=== PATIENT | female | born 1960 | race Caucasian/White ===

== ENCOUNTER → 2022-11-11 09:01 | Outpatient (BNVA) | payer OTHER, SELFPAY | PROVIDERS: Family Provider Family Medicine; PCP Family Medicine; Visit Provider Family Medicine | DX: K29.70 Gastritis, unspecified, without bleeding (principal); Z00.00 Encounter for general adult medical examination without abnormal findings | CPT/HCPCS: 80053; 80061; 83036; 84443; 85025 ==

== ENCOUNTER → 2023-04-12 13:26 | Outpatient (BNVA) | payer OTHER, SELFPAY | PROVIDERS: Family Provider Family Medicine; PCP Family Medicine; Visit Provider Family Medicine | DX: N20.0 Calculus of kidney (principal); N39.0 Urinary tract infection, site not specified | CPT/HCPCS: 74018; 81003 ==

== ENCOUNTER 2025-03-11 12:00 | Emergency (ER) | payer OTHER, SELFPAY ==
[2025-03-11] VITALS (9 sets, daily range): BP systolic 147–203; BP diastolic 81–112; PULSE 69–80; RESP 24; TEMP 36.7; O2SAT 96–100; BMI 26.6
--- NOTE | 2025-03-11 12:48 | CT_ITS ---
WS: [id number] CT ABDOMEN AND PELVIS NONCONTRAST HISTORY: probable R ureter stone; hematuria TECHNIQUE: Imaging performed through the abdomen and pelvis. Coronal and sagittal reformats are submitted. All CT scans at [facility] use at least one of these dose optimization techniques: automated exposure control; mA and/or kV adjustment per patient size (includes targeted exams where dose is matched to clinical indication); or iterative reconstruction. DLP: 566.42 mGy.cm COMPARISON: 04/03/2007 Lower thorax: Small hiatal hernia. Otherwise negative. Liver: Normal size liver. Low-attenuation 9 mm nodule in the RIGHT lobe of the liver. May be a small cyst but cannot be further characterized. There are a few additional smaller scattered similar low-attenuation masses within the liver. Gallbladder: Mild heterogeneity within the gallbladder lumen is layering may be a small amount of sludge. No pericholecystic fluid. Pancreas: Normal size and attenuation. Normal pancreatic duct. No pancreatitis or mass. Spleen: Normal. Adrenal glands: Normal. No mass. Right kidney: Mild to moderate dilatation of the RIGHT renal pelvis. No significant perinephric stranding. There is also a small extrarenal pelvis. Proximal ureter is dilated secondary to a 3.5 mm proximal calcification. No additional ureteral calcification. Left kidney: Normal size kidney. Moderate hydronephrosis. Dilated extrarenal pelvis. Dilatation to the mid ureter. In the mid ureter there are 3 ureteral calcifications causing the more proximal obstruction. The largest calcification is most distal measuring 7.4 mm. Distal to the ureter there is no calcification. Aorta: Mild atherosclerosis abdominal aorta with no aneurysm. Small shotty retroperitoneal lymph nodes. GI tract: No obstruction. Normal appendix. No diverticulitis. Abdominal wall: Small umbilical hernia contains fat only. Pelvis: Prior hysterectomy. No free fluid or adenopathy. Negative urinary bladder. Osseous structures: Unremarkable. CT/CT kidney stone [id number] IMPRESSION: 1. Bilateral hydronephrosis, moderate on the LEFT and mild to moderate on the RIGHT. 2. Proximal RIGHT ureteral calcification measures 3.5 mm. 3. Mid LEFT ureteral calcifications x3. There are 3 calcifications in a row wi th the largest being the most distal calcification measuring 7.4 mm. 4. No urinary bladder calcifications. 5. Normal appendix. 6. No free fluid. Small retroperitoneal lymph nodes.
--- NOTE | 2025-03-11 12:49 | ED_ITS ---
Documented by User: OLLIE Perez 03/11/25 14:48 HPI - Abdominal Pain 2 General: Chief Complaint: Abdominal Pain Stated Complaint: R side pain, lightheaded, nausea, L&R hand tingle Time Seen by Provider: 03/11/25 12:09 Source: patient Mode of arrival: ambulatory Limitations: no limitations History of Present Illness: Patient is a nice 64-year-old female presents to ED today with concerns of a probable right ureter stone. She states earlier today she had acute onset right lower back pain that has now radiated around into her right lower abdomen and into her right groin. She states since arrival to the emergency department she has noted gross hematuria. She states she has a longstanding history of kidney and ureter stones and states this feels similar. She states she feels nauseous secondary to pain. She states her blood pressure is usually normal but is elevated today secondary to pain. MD elicited complaint: abdominal pain Pertinent past history: kidney stones Onset (ago): hour(s) Pain Consistency: constant Location: RLQ Severity: severe Migration to: no migration Exacerbating factors: nothing Relieving factors: nothing Associated Symptoms: Reports hematuria, nausea and other (hematuria); Denies chills, constipation, diarrhea, dysuria, fever(s) and vomiting Related Data Previous Rx's ?Medication ?Instructions ?Recorded escitalopram oxalate 10 mg tablet 10 mg PO DAILY mood #90 tabs 01/28/25 hydrocodone 5 mg-acetaminophen 325 1 tab PO Q4H PRN pa in 5 days #20 01/28/25 mg tablet tabs sulfamethoxazole 800 1 tab PO BID infection #20 t abs 01/28/25 mg-trimethoprim 160 mg tablet (Bactrim DS) tamsulosin 0.4 mg capsule 0.4 mg PO DAILY kidnsy stone #20 01/28/25 caps Allergies Allergy/AdvReac Type Severity Reaction Status Date / Time No Known Allergies Allergy Verified 03/11/25 12:08 Review of Systems 2 Const: Denies: fever(s), chills, body aches, fatigue or malaise Card: Denies: chest pain Resp: Denies: dyspnea GI: Reports: abdominal pain, nausea and other (hematuria); Denies: vomiting, diarrhea or constipation : Reports: urinary urgency and hematuria; Denies: flank pain, difficulty voiding or dysuria Musc: Denies: neck pain, back pain, extremity pain, extremity swelling, joint pain, joint swelling or joint redness Skin/Breast: Denies: rash Neuro: Denies: headache(s), numbness in extremities, weakness in extremities, sensory changes or dizziness PFSH ED 2 PFSH: Social History Smoking and tobacco/nicotine status: unknown if used tobacco/nicotine Physical Exam 2 Const: COMMON NORMALS: no acute distress, average body habitus, patient oriented x3, no limitations, healthy appearing, alert and well nourished G ENERAL APPEARANCE: cooperative ORIENTATION/CONSCIOUSNESS: Yes awake, Yes oriented to person, Yes oriented to place and Yes oriented to time HENMT: COMMON NORMALS: normocephalic and atraumatic HEAD & SCALP: normal to inspection, normocephalic and atraumatic Eye: COMMON NORMALS: no scleral icterus Resp: COMMON NORMALS: normal respiratory effort and clear to auscultation bilaterally AUSCULTATION: clear to auscultation bilaterally Cardio: COMMON NORMALS: regular rate and regular rhythm RATE: regular rate RHYTHM: regular rhythm GI: COMMON NORMALS: Normal to inspection, nondistended, normoactive bowel sounds present, Soft to palpation, No hepatosplenomegaly present and no masses INSPECTION: Yes normal to inspection AUSCULTATION: Yes normoactive bowel sounds PALPATION: Yes Soft to palpation, Yes Tenderness to palpation present (GI) (RLQ/R groin), No Guarding due to palpation present (GI), No Rigid due to palpation and Yes No hepatosplenomegaly present : COMMON NORMALS: Yes no CVA tenderness BLADDER/KIDNEY EXAM: Yes no CVA tenderness Back/Pelvis: COMMON NORMALS: no CVA tenderness and thoracic and lumbar spine normal to inspection Extremity: GENERAL: Yes normal exam except as noted Neuro: COMMON NORMALS: patient oriented x3, moves all extremities, no focal motor deficits, no sensory deficits noted and gait normal S ENSORIUM/ORIENTATION: Yes alert, Yes oriented to person, Yes oriented to place and Yes oriented to time Skin: COMMON NORMALS: no rashes or lesions noted GENERAL SKIN EXAM: no rashes or lesions noted Course 2 Consultations: Consultation #1: Dr. Bruno urology-recommending transfer due to bilateral ureter stone in the presence of infection Consultation #2: Jyoti [facility] hospitalist-accepting patient Vital Signs: Vital signs: Vital Signs Temperature 98.0 F 03/11/25 12:03 Pulse Rate 74 03/11/25 17:54 Respiratory Rate 24 H 03/11/25 12:03 Blood Pressure 153/97 03/11/25 17:54 Pulse Oximetry 100 03/11/25 17:54 Oxygen Delivery Me thod Room Air 03/11/25 17:37 MDM - Abdominal Pain Medical Decision Making Patient is a nice 64-year-old female here for acute onset back pain radiating around into her abdomen. History of kidney and ureter stones. CT scan showing bilateral hydronephrosis. She does have a 3.5 mm distal right ureter stone explaining her symptoms. She was incidentally found to have 3 left ureter stones the largest of which being 7.4 mm. Her blood work overall is unremarkable. Concern as she seems to have gross infection in her urine with positive nitrates, 2+ leukocyte esterase, and greater than [address] Jo with [facility] urology who is recommending transfer. Per his recommendations, she will be NPO, and he is okay with IV Rocephin for antibiotic selection. Medical Records I reviewed the patient's medical records. Lab Data I reviewed the patient's lab results. 03/11/25 12:30 03/11/25 12:30 Labs/Radiology: Radiology Impressions Abdomen/Pelvis CT 03/11/25 12:48 IMPRESSION: 1. Bilateral hydronephrosis, moderate on the LEFT and mild to moderate on the RIGHT. 2. Proximal RIGHT ureteral calcification measures 3.5 mm. 3. Mid LEFT ureteral calcifications x3. There are 3 calcifications in a row with the largest being the most distal calcification measuring 7.4 mm. 4. No urinary bladder calcifications. 5. Normal appendix. 6. No free fluid. Small retroperitoneal lymph nodes. Laboratory Results WBC 8.78 10^3/uL (3.29-11.43) 03/11/25 12:30 RBC 4.73 10^6/uL (3.85-5.65) 03/11/25 12:30 Hgb 14.80 g/dL (11.27-16.99) 03/11/25 12:30 Hct 42.4 % (36-47) 03/11/25 12:30 MCV 89.6 fl (85-98) 03/11/25 12:30 MCH 31.3 pg (27-33) 03/11/25 12:30 MCHC 34.9 g/dL (30-55) 03/11/25 12:30 RDW 12.1 % (12.1-15.1) 03/11/25 12:30 Plt Count 342 10^3/cmm (157-399) 03/11/25 12:30 MPV 10.2 fL (7.4-10.4) 03/11/25 12:30 Neut % (Auto) 53.6 % 03/11/25 12:30 Lymph % (Auto) 39.6 % 03/11/25 12:30 [place] % (Auto) 4.7 % 03/11/25 12:30 Eos % (Auto) 1.3 % 03/11/25 12:30 Baso % (Auto) 0.6 % 03/11/25 12:30 Neut # (Auto) 4.71 10^3/uL (1.8-7.7) 03/11/25 12:30 Lymph # (Auto) 3.5 10^3/uL (0.8-4.8) 03/11/25 12:30 [place] # (Auto) 0.4 10^3/uL (0.2-0.9) 03/11/25 12:30 Eos # (Auto) 0.1 10^3/uL (0.0-0.8) 03/11/25 12:30 Baso # (Auto) 0.1 10^3/uL (0.0-0.1) 03/11/25 12:30 Nucleated RBC % (auto) 0 % 03/11/25 12:30 Nucleated RBCs # 0.0 /100WBC 03/11/25 12:30 Sodium 142 mmol/L (136-145) 03/11/25 12:30 Potassium 3.8 mmol/L (3.5-5.1) 03/11/25 12:30 Chloride 107 mmol/L (98-107) 03/11/25 12:30 Carbon Dioxide 20 mmol/L (22-29) L 03/11/25 12:30 Anion Gap 18.8 (5-19) 03/11/25 12:30 BUN 19 mg/dL (8-23) 03/11/25 12:30 Creatinine 0.8 mg/dL (0.5-0.9) 03/11/25 12:30 GFR Calculation 72.2 mL/min (90-130) L 03/11/25 12:30 Glucose 98 mg/dL (65-115) 03/11/25 12:30 Calculated Osmolality 296 mOsm/kg (285-295) H 03/11/25 12:30 Calcium 10.3 mg/dL (8.5-10.5) 03/11/25 12:30 Total Bilirubin 0.8 mg/dL (0.15-1.2) 03/11/25 12: AST 15 U/L (0-32) 03/11/25 12: ALT 14 U/L (0-33) 03/11/25 12: Alkaline Phosphatase 76 U/L (35-105) 03/11/25 12:30 Total Protein 7.4 g/dL (6.6-8.7) 03/11/25 12: Albumin 4.8 g/dL (3.5-5.2) 03/11/25 12: Globulin 2.6 g/dL (1.3-4.6) 03/11/25 12:30 Urine Color Red (Yellow) A 03/11/25 12: Urine Appearance Turbid (CLEAR) A 03/11/25 12: Urine pH 5.0 (5-7) 03/11/25 12:30 Ur Specific [place] 1.024 (1.005-1.030) 03/11/25 12:30 Urine Protein 3+ (Negative) A 03/11/25 12: Urine Glucose (UA) Negative (Normal) 03/11/25 12: Urine Ketones Negative (Negative) 03/11/25 12: Urine Blood 3+ (Negative) A 03/11/25 12: Urine Nitrate Positive (Negative) A 03/11/25 12: Urine Bilirubin 1+ (Negative) H 03/11/25 12:30 Urine Urobilinogen 1.0 mg/dL (Negative) 03/11/25 12:30 Ur Leukocyte Esterase 2+ (Negative) A 03/11/25 12: Urine RBC >100 /hpf (0-2) H 03/11/25 12:30 Urine WBC >100 /hpf (0-5) H 03/11/25 12:30 Ur Squamous Epith Cells 6-10 /hpf (0-5) 03/11/25 12:30 Amorphous Sediment 1+ /hpf 03/11/25 12:30 Urine Bacteria None seen /hpf (NONE) 03/11/25 12:30 Hyaline Casts 2.03 /lpf 03/11/25 12:30 All radiology interpretation(s) finalized by discharge Discharge Plan Discharge Patient Disposition: Xfer Short-Term Hosp Clinical Impression: Bilateral ureteral calculi UTI (urinary tract infection) Qualifiers: Urinary tract infection type: acute cystitis Hematuria presence: with hematuria Qualified Code(s): N30.01 - Acute cystitis with hematuria Condition: Stable Referrals: Hunter Henriquez DO [Primary Care Provider, [facility]] Print Language: Kiswahili Coding Level of Care Code ED Compliance Nurse for Chg Fwd Documented by User: Kennedy Kennedy DO 03/11/25 18:52 HPI - Abdominal Pain 2 General: Chief Complaint: Abdominal Pain Stated Complaint: R side pain, lightheaded, nausea, L&R hand tingle Time Seen by Provider: 03/11/25 12:09 Related Data Previous Rx's ?Medication ?Instructions ?Recorded escitalopram oxalate 10 mg tablet 10 mg PO DAILY mood #90 tabs 01/28/25 hydrocodone 5 mg-acetaminophen 325 1 tab PO Q4H PRN pa in 5 days #20 01/28/25 mg tablet tabs sulfamethoxazole 800 1 tab PO BID infection #20 t abs 01/28/25 mg-trimethoprim 160 mg tablet (Bactrim DS) tamsulosin 0.4 mg capsule 0.4 mg PO DAILY kidnsy stone #20 01/28/25 caps Allergies Allergy/AdvReac Type Severity Reaction Status Date / Time No Known Allergies Allergy Verified 03/11/25 12:08 PFSH ED 2 PFSH: Social History (Reviewed 03/11/25 @ 13:11 by REJI Perez Smoking and tobacco/nicotine status: unknown if used tobacco/nicotine Course 2 Vital Signs: Vital signs: Vital Signs Temperature 98.0 F 03/11/25 12:03 Pulse Rate 74 03/11/25 17:54 Respiratory Rate 24 H 03/11/25 12:03 Blood Pressure 153/97 03/11/25 17:54 Pulse Oximetry 100 03/11/25 17:54 Oxygen Delivery Me thod Room Air 03/11/25 17:37 MDM - Abdominal Pain Medical Decision Making Patient is a nice 64-year-old female here for acute onset back pain radiating around into her abdomen. History of kidney and ureter stones. CT scan showing bilateral hydronephrosis. She does have a 3.5 mm distal right ureter stone explaining her symptoms. She was incidentally found to have 3 left ureter stones the largest of which being 7.4 mm. Her blood work overall is unremarkable. Concern as she seems to have gross infection in her urine with positive nitrates, 2+ leukocyte esterase, and greater than [address] Jo with [facility] urology who is recommending transfer. Per his recommendations, she will be NPO, and he is okay with IV Rocephin for antibiotic selection. Chart reviewed and patient discussed with midlevel. Agree with assessment and plan. Lab Data 03/11/25 12:30 03/11/25 12:30 Labs/Radiology: Radiology Impressions Abdomen/Pelvis CT 03/11/25 12:48 IMPRESSION: 1. Bilateral hydronephrosis, moderate on the LEFT and mild to moderate on the RIGHT. 2. Proximal RIGHT ureteral calcification measures 3.5 mm. 3. Mid LEFT ureteral calcifications x3. There are 3 calcifications in a row with the largest being the most distal calcification measuring 7.4 mm. 4. No urinary bladder calcifications. 5. Normal appendix. 6. No free fluid. Small retroperitoneal lymph nodes. Laboratory Results WBC 8.78 10^3/uL (3.29-11.43) 03/11/25 12:30 RBC 4.73 10^6/uL (3.85-5.65) 03/11/25 12:30 Hgb 14.80 g/dL (11.27-16.99) 03/11/25 12:30 Hct 42.4 % (36-47) 03/11/25 12:30 MCV 89.6 fl (85-98) 03/11/25 12:30 MCH 31.3 pg (27-33) 03/11/25 12:30 MCHC 34.9 g/dL (30-55) 03/11/25 12:30 RDW 12.1 % (12.1-15.1) 03/11/25 12:30 Plt Count 342 10^3/cmm (157-399) 03/11/25 12:30 MPV 10.2 fL (7.4-10.4) 03/11/25 12:30 Neut % (Auto) 53.6 % 03/11/25 12:30 Lymph % (Auto) 39.6 % 03/11/25 12:30 [place] % (Auto) 4.7 % 03/11/25 12:30 Eos % (Auto) 1.3 % 03/11/25 12:30 Baso % (Auto) 0.6 % 03/11/25 12:30 Neut # (Auto) 4.71 10^3/uL (1.8-7.7) 03/11/25 12:30 Lymph # (Auto) 3.5 10^3/uL (0.8-4.8) 03/11/25 12:30 [place] # (Auto) 0.4 10^3/uL (0.2-0.9) 03/11/25 12:30 Eos # (Auto) 0.1 10^3/uL (0.0-0.8) 03/11/25 12:30 Baso # (Auto) 0.1 10^3/uL (0.0-0.1) 03/11/25 12:30 Nucleated RBC % (auto) 0 % 03/11/25 12:30 Nucleated RBCs # 0.0 /100WBC 03/11/25 12:30 Sodium 142 mmol/L (136-145) 03/11/25 12:30 Potassium 3.8 mmol/L (3.5-5.1) 03/11/25 12:30 Chloride 107 mmol/L (98-107) 03/11/25 12:30 Carbon Dioxide 20 mmol/L (22-29) L 03/11/25 12:30 Anion Gap 18.8 (5-19) 03/11/25 12:30 BUN 19 mg/dL (8-23) 03/11/25 12:30 Creatinine 0.8 mg/dL (0.5-0.9) 03/11/25 12:30 GFR Calculation 72.2 mL/min (90-130) L 03/11/25 12:30 Glucose 98 mg/dL (65-115) 03/11/25 12:30 Calculated Osmolality 296 mOsm/kg (285-295) H 03/11/25 12:30 Calcium 10.3 mg/dL (8.5-10.5) 03/11/25 12:30 Total Bilirubin 0.8 mg/dL (0.15-1.2) 03/11/25 12: AST 15 U/L (0-32) 03/11/25 12: ALT 14 U/L (0-33) 03/11/25 12: Alkaline Phosphatase 76 U/L (35-105) 03/11/25 12:30 Total Protein 7.4 g/dL (6.6-8.7) 03/11/25 12: Albumin 4.8 g/dL (3.5-5.2) 03/11/25 12: Globulin 2.6 g/dL (1.3-4.6) 03/11/25 12:30 Urine Color Red (Yellow) A 03/11/25 12: Urine Appearance Turbid (CLEAR) A 03/11/25 12: Urine pH 5.0 (5-7) 03/11/25 12:30 Ur Specific [place] 1.024 (1.005-1.030) 03/11/25 12:30 Urine Protein 3+ (Negative) A 03/11/25 12: Urine Glucose (UA) Negative (Normal) 03/11/25 12: Urine Ketones Negative (Negative) 03/11/25 12: Urine Blood 3+ (Negative) A 03/11/25 12: Urine Nitrate Positive (Negative) A 03/11/25 12: Urine Bilirubin 1+ (Negative) H 03/11/25 12:30 Urine Urobilinogen 1.0 mg/dL (Negative) 03/11/25 12:30 Ur Leukocyte Esterase 2+ (Negative) A 03/11/25 12: Urine RBC >100 /hpf (0-2) H 03/11/25 12:30 Urine WBC >100 /hpf (0-5) H 03/11/25 12:30 Ur Squamous Epith Cells 6-10 /hpf (0-5) 03/11/25 12:30 Amorphous Sediment 1+ /hpf 03/11/25 12:30 Urine Bacteria None seen /hpf (NONE) 03/11/25 12:30 Hyaline Casts 2.03 /lpf 03/11/25 12:30 Discharge Plan Discharge Patient Disposition: Xfer Short-Term Hosp Clinical Impression: Bilateral ureteral calculi UTI (urinary tract infection) Qualifiers: Urinary tract infection type: acute cystitis Hematuria presence: with hematuria Qualified Code(s): N30.01 - Acute cystitis with hematuria Condition: Stable Referrals: Hunter Henriquez DO [Primary Care Provider, Family [facility]] Print Language: Kiswahili Coding Level of Care Code ED Compliance Nurse for Aundrea Chen
[2025-03-11 13:13] LABS: Bilirubin Urine 1+ (Negative); Blood Urine 3+ (Negative); Glucose Urine UA Negative (Normal); Ketones Urine Negative (Negative); Leukocyte Esterase Urine 2+ (Negative); Nitrate Urine Positive (Negative); Protein Urine 3+ (Negative); Specific Gravity, Urine 1.024 (1.005-1.030); Urine Appearance Turbid (CLEAR)
[2025-03-11 13:14] LABS: Basophils # 0.1 10^3/uL (0.0-0.1); Basophils % 0.6 %; Eosinophils # 0.1 10^3/uL (0.0-0.8); Eosinophils % 1.3 %; Hematocrit 42.4 % (36-47); Lymphocytes # 3.5 10^3/uL (0.8-4.8); Lymphocytes % 39.6 %; Mean Corpuscular HGB Conc 34.9 g/dL (30-55); Mean Corpuscular Hemoglobin 31.3 pg (27-33); Mean Corpuscular Volume 89.6 fl (85-98); Mean Platelet Volume 10.2 fL (7.4-10.4); Monocytes # 0.4 10^3/uL (0.2-0.9); Monocytes % 4.7 %; Neutrophils # 4.71 10^3/uL (1.8-7.7); Neutrophils % 53.6 %; Nucleated Red Blood Cells % 0 %; Platelet Count 342 10^3/cmm (157-399); Red Blood Count 4.73 10^6/uL (3.85-5.65); Red Cell Distribution Width 12.1 % (12.1-15.1); White Blood Count 8.78 10^3/uL (3.29-11.43)
[2025-03-11] MEDS: sodium chloride 0.9% 1,000 ML 999 ML IV (13:14)
[2025-03-11 13:15] LABS: Add Urine Microscopic? YES; Bacteria Urine None Seen /hpf; Hyaline Casts Urine 2.03 /lpf; RBC Urine >100 /hpf (0-2); WBC Urine >100 /hpf (0-5)
[2025-03-11] MEDS: ondansetron 2 mg/ML SDV 2 mL 4 MG IVP (13:15)
[2025-03-11] MEDS: morphine 4 mg/mL SDV 1 mL IVP ×2 (13:21→17:36)
[2025-03-11 13:25] LABS: Urine Color Red (Yellow)
[2025-03-11 13:26] LABS: Add Urine Culture? Yes; UA Slide Review UA Slide Review Perf
[2025-03-11 13:32] LABS: Amorphous Sediment Urine 1+ /hpf
[2025-03-11 13:34] LABS: Alanine Aminotransferase 14 U/L (0-33); Albumin Level 4.8 g/dL (3.5-5.2); Alkaline Phosphatase 76 U/L (35-105); Anion Gap 18.8 (5-19); Aspartate Amino Transferase 15 U/L (0-32); Blood Urea Nitrogen 19 mg/dL (8-23); Calcium 10.3 mg/dL (8.5-10.5); Carbon Dioxide 20 mmol/L (22-29); Chloride 107 mmol/L (98-107); Creatinine Clr Calc Pharmacy 70.9142; Globulin 2.6 g/dL (1.3-4.6); Glomerular Filtration Rate 72.2 mL/min (90-130); Glucose 98 mg/dL (65-115); Osmolality Calculated 296 mOsm/kg (285-295); Potassium 3.8 mmol/L (3.5-5.1); Sodium 142 mmol/L (136-145); Total Bilirubin 0.8 mg/dL (0.15-1.2); Total Protein 7.4 g/dL (6.6-8.7)
[2025-03-11] MEDS: cefTRIAXone 1,000 mg SDV 1000 MG IVP (14:21)
[2025-03-11] MEDS: ketorolac 30 mg/mL INJ IVP (14:23)
--- NOTE | 2025-03-14 11:35 | DCPLANNER ---
faxed urology referral to [place]
== END 2025-03-11 17:58 | disposition short-term general hospital (02) ==
PROVIDERS: Emergency Provider Physician Assistant; PCP Family Medicine
DX: N20.1 Calculus of ureter (principal); N30.01 Acute cystitis with hematuria
CPT/HCPCS: 36415; 74176; 80053; 81001; 85025; 87040; 87086; 96361; 96374; 96375; 96376; 99285; J0696; J1885; J2270; J2405; J7030